=== PATIENT | female | born 1955 | race African-American/Black ===

== ENCOUNTER 2017-06-19 10:34 | Inpatient (IN) | payer OTHER ==
[2017-06-19] MEDS ORDERED: GELATIN SIZE 100 SPONGE (12:47)
[2017-06-19] MEDS ORDERED: PROPOFOL 20 ML (12:55)
[2017-06-19] MEDS ORDERED: GLYCOPYRROLATE 0.4 MG INJ (12:55)
[2017-06-19] MEDS ORDERED: CEFAZOLIN 1 GM INJ (12:55)
[2017-06-19] MEDS ORDERED: MIDAZOLAM 1 MG/ML 2 ML INJ (12:55)
[2017-06-19] MEDS ORDERED: ROCURONIUM 50 MG INJ (12:55)
[2017-06-19] MEDS ORDERED: ONDANSETRON 4 MG INJ (12:55)
[2017-06-19] MEDS ORDERED: NEOSTIGMINE 3 MG/3 ML SYRINGE (12:55)
[2017-06-19] MEDS ORDERED: DEXAMETHASONE 4 MG/ML 1 ML INJ (12:55)
[2017-06-19] MEDS: POLYMYXIN/BACITRACIN 1L IRRIG (13:30)
[2017-06-19] MEDS: THROMBIN 5000 UNIT VIAL (13:30)
[2017-06-19] MEDS ORDERED: FENTAnyl 50 MCG/ML VIAL IV ×5 (14:00)
[2017-06-19] MEDS ORDERED: EPHEDrine SULFATE 50 MG/5 ML SYG IV ×2 (14:00)
[2017-06-19] MEDS ORDERED: MIDAZOLAM 1 MG/ML 2 ML INJ IV (14:00)
[2017-06-19] MEDS ORDERED: TRIMETHOBENZAMIDE 100 MG/ML VIAL IM ×2 (14:00)
[2017-06-19] MEDS ORDERED: HYDROmorphONE (0.2 MG/ML) 10ML SYG IV ×6 (14:00)
[2017-06-19] MEDS ORDERED: hydrALAzine 20 MG INJ IV ×2 (14:00)
[2017-06-19] MEDS ORDERED: ALBUTEROL 0.083% (NEB) 2.5 MG/3 ML AMP HHN (14:00)
[2017-06-19] MEDS ORDERED: ONDANSETRON 4 MG INJ IV ×2 (14:00→16:30)
[2017-06-19] MEDS ORDERED: DIPHENHYDRAMINE 50 MG INJ IV ×2 (14:00)
[2017-06-19] MEDS ORDERED: OXYCODONE/ACETAMINOPHEN (5/325) TAB PO ×4 (14:00)
[2017-06-19] MEDS ORDERED: IPRATROPIUM (NEB) 0.5 MG/2.5 ML AMP HHN ×2 (14:00)
[2017-06-19] MEDS ORDERED: MEPERIDINE 25 MG INJ IV ×2 (14:00)
[2017-06-19] MEDS ORDERED: LABETALOL HCL 20MG INJ IV ×2 (14:00)
[2017-06-19] MEDS: BUPIVACAINE 0.25%/EPI (SDV) 30 ML INJ (15:52)
[2017-06-19] MEDS ORDERED: SUGAMMADEX SODIUM 200 MG/2 ML VIAL IV (16:06)
[2017-06-19] MEDS ORDERED: PROCHLORPERAZINE 10 MG TAB PO (16:30)
[2017-06-19] MEDS ORDERED: NALOXONE (0.4 MG/ML) INJ IV (16:30)
[2017-06-19] MEDS ORDERED: NACL 0.9% 3 ML SYG IV (16:30)
[2017-06-19] MEDS: MIDAZOLAM 1 MG/ML 2 ML INJ IV ×2 (16:42→17:22)
[2017-06-19] MEDS: ALBUTEROL 0.083% (NEB) 2.5 MG/3 ML AMP HHN (16:45)
[2017-06-19] MEDS: HYDROmorphONE 0.2 MG/ML PCA IV (16:55)
[2017-06-19] MEDS: FENTAnyl 50 MCG/ML VIAL IV (16:59)
[2017-06-19] MEDS: ONDANSETRON 4 MG INJ IV (17:19)
[2017-06-19] MEDS: VANCOMYCIN 1 GM (PMX) 250 ML IVPB (17:45)
[2017-06-19] MEDS ORDERED: METOCLOPRAMIDE 10 MG INJ IV (18:00)
[2017-06-19] MEDS: PROCHLORPERAZINE 10 MG INJ IV (18:25)
[2017-06-19] MEDS ORDERED: METOCLOPRAMIDE 5 MG TAB PO (18:30)
[2017-06-19] MEDS ORDERED: morphine 1 MG/ML 30 ML (PCA) IV (20:00)
[2017-06-19] MEDS: morphine 1 MG/ML 30 ML (PCA) IV (21:38)
[2017-06-20] MEDS: PROCHLORPERAZINE 10 MG INJ IV (01:26)
[2017-06-20] MEDS: VANCOMYCIN 1 GM (PMX) 250 ML IVPB (05:18)
[2017-06-20] MEDS ORDERED: VITAMIN A & D 5 GM OINT PACKET TOP (05:25)
[2017-06-20 05:43] LABS: HEMATOCRIT 34.1 % (37.0-47.0); HEMOGLOBIN 10.9 g/dl (12.0-16.0)
[2017-06-20 06:16] LABS: ANION GAP 11 (8-16); BLOOD UREA NITROGEN 12 mg/dl (7-20); CALCIUM 9.5 mg/dl (8.4-10.2); CARBON DIOXIDE 28 mmol/L (21-31); CHLORIDE 105 mmol/L (97-110); CREATININE 0.67 mg/dl (0.44-1.00); GLUCOSE 117 mg/dl (70-220); POTASSIUM 4.2 mmol/L (3.5-5.1); SODIUM 140 mmol/L (135-144)
[2017-06-20 07:05] LABS: HEPATITIS B SURFACE ANTIGEN NEGATIVE (NEGATIVE)
[2017-06-20 07:22] LABS: HEPATITIS C VIRAL ANTIBODY NEGATIVE (NEGATIVE)
[2017-06-20] MEDS ORDERED: morphine 2 MG INJ IV (08:00)
[2017-06-20] MEDS: HYDROCODONE/APAP (5/325) TAB PO ×3 (11:00→21:06)
[2017-06-21] MEDS: HYDROCODONE/APAP (5/325) TAB PO ×3 (03:15→17:13)
[2017-06-22] MEDS: ACETAMINOPHEN 325 MG TAB PO (01:55)
[2017-06-22] MEDS: METHOCARBAMOL 500 MG TAB PO ×2 (01:55→06:30)
[2017-06-22] MEDS: HYDROCODONE/APAP (5/325) TAB PO ×2 (08:30→18:41)
[2017-06-22] MEDS: TIZANIDINE 4 MG TAB PO (14:42)
== END 2017-06-22 19:00 | disposition home or self-care (01) | DRG 517 ==
LOC: REC 10:34 → MS1 06-20 01:12
PROC: 01NB0ZZ Release Lumbar Nerve, Open Approach (ICD-10-PCS; principal; 2017-06-19 12:30)
DX: M48.062 Spinal stenosis, lumbar region with neurogenic claudication (principal); F41.9 Anxiety disorder, unspecified; M51.16 Intervertebral disc disorders with radiculopathy, lumbar region; M48.07 Spinal stenosis, lumbosacral region; Z88.0 Allergy status to penicillin; Z88.8 Allergy status to other drugs, medicaments and biological substances
CPT/HCPCS: 80048; 85014; 85018; 86803; 87340; 94664; 97116; 97163; 97530

== ENCOUNTER 2018-08-03 09:13 | Day surgery (SDC) | payer OTHER ==
[2018-08-03] MEDS ORDERED: MIDAZOLAM 1 MG/ML 2 ML INJ ×2 (11:25)
[2018-08-03] MEDS ORDERED: FENTAnyl 50 MCG/ML VIAL (11:25)
== END 2018-08-03 16:44 | disposition home or self-care (01) ==
LOC: GIL 09:13
DX: Z12.11 Encounter for screening for malignant neoplasm of colon (principal); K64.8 Other hemorrhoids
CPT/HCPCS: 45378